=== PATIENT | female | born 1995 | race Caucasian/White ===

== ENCOUNTER 2021-05-04 10:00 | Emergency (ER) | payer BC ==
[2021-05-04 10:07] VITALS: BP 151/87; PULSE 96; RESP 18; TEMP 98.7
[2021-05-04] MEDS ORDERED: CEPHALEXIN 500 MG CAP PO STA (10:16)
[2021-05-04] MEDS ORDERED: dexAMETHasone 2 MG TAB PO STA (10:16)
--- NOTE | 2021-05-04 10:19 | ED ---
Extremity Problem HPI - General Chief complaint: Extremity Problem,Nontraumatic Stated complaint: Reaction to Vaccine Time Seen by Provider: 05/04/21 10:12 Source: patient, RN notes reviewed Mode of arrival: ambulatory Limitations: no limitations - History of Present Illness Initial comments: 25-year-old female presents emergency from [facility] possible left arm where she received Pfizer vaccine. Patient states that she had no symptoms initially but over the last 2-3 days she's had increasing redness and swelling. Patient states that she is getting worse day by day. Patient denies any fevers or chills no other complaints. - Related Data Previous Rx's Medication Instructions Recorded Cephalexin [Keflex] 500 mg PO Q6HR #28 cap 05/04/21 Allergies Allergy/AdvReac Type Severity Reaction Status Date / Time No Known Allergies Allergy Verified 05/04/21 10:07 Review of Systems ROS Statement: Those systems with pertinent positive or pertinent negative responses have been documented in the HPI. ROS Other: All systems not noted in ROS Statement are negative. Past Medical History Past Medical History: Asthma History of Any Multi-Drug Resistant Organisms: None Reported Past Surgical History: Section Additional Past Surgical History / Comment(s): breast reduction, foot surgery 2016 Past Psychological History: No Psychological Hx Reported Smoking Status: Never smoker Past Alcohol Use History: Occasional Past Drug Use History: None Reported General Exam Limitations: no limitations General appearance: alert, in no apparent distress Head exam: Present: atraumatic, normocephalic, normal inspection Neck exam: Present: normal inspection. Absent: tenderness, meningismus, lymphadenopathy Respiratory exam: Present: normal lung sounds bilaterally. Absent: respiratory distress, wheezes, rales, rhonchi, stridor Cardiovascular Exam: Present: regular rate, normal rhythm, normal heart sounds. Absent: systolic murmur, diastolic murmur, rubs, gallop, clicks Extremities exam: Present: other (Left upper arm there is erythema noted there is borderline which was marked and there is erythema outside the border, tenderness with palpation) Course Vital Signs 05/04/21 10:02 Temperature 98.7 F Pulse Rate 96 Respiratory 18 Rate Blood Pressure 151/87 O2 Sat by Pulse 100 Oximetry Medical Decision Making - Medical Decision Making Patient may have site reaction versus cellulitis as it seems to be worsening. Patient we discharged on antibiotics return parameters were discussed. Disposition Clinical Impression: Left arm cellulitis, Injection site reaction Disposition: HOME SELF-CARE Condition: Stable Instructions (If sedation given, give patient instructions): Cellulitis (ED) Additional Instructions: Please return to the Emergency Department if symptoms worsen or any other concerns. Prescriptions: Cephalexin [Keflex] 500 mg PO Q6HR #28 cap Is patient prescribed a controlled substance at d/c from ED?: No Referrals: Alden Benito DO [Primary Care Provider] - 1-2 days Time of Disposition: 10:18
== END 2021-05-04 10:42 | disposition home or self-care (01) ==
LOC: EC 10:00
DX: L03.114 Cellulitis of left upper limb (principal); T50.B95A Adverse effect of other viral vaccines, initial encounter
CPT/HCPCS: 99283; J8540

== ENCOUNTER → 2021-05-27 | Outpatient (CLI) | payer BC ==
--- NOTE | 2021-05-27 15:55 | ECHOS ---
STRESS ECHOCARDIOGRAM INDICATIONS: Palipitations BASELINE HEART RATE: 83 BASELINE BLOOD PRESSURE: 111/62 MAXIMUM HEART RATE: 181 MAXIMUM BLOOD PRESSURE: 148/55 85% MPHR: 196 100% MPHR: METS: 7.3 MAXIMUM STAGE REACHED: II TOTAL EXERCISE TIME: 6 min. RESULTS: Baseline EKG revealed normal sinus rhythm without significant ST changes. Patient walked for 6 minutes on standard Bib protocol. Achieved a maximal heart rate of 180 beats per minute, developed fatigue and shortness of breath but did not have any anginal symptoms. Patient had hypertensive response to exercise with a peak pressure of 250. Two hundred fifty systolic was recorded on the machine, but I am not sure if this is accurate. Immediately after the exercise within 5 minutes, the pressure was down to 137/70. However, this is a negative stress test with limited exercise capacity. Hypertensive response with exercise was noted. Baseline echo images revealed normal wall motion and wall thickening of all segments. At peak exercise, there was good augmentation of left and wall motion wall thickening of all segments suggesting that there is no evidence of any stress-induced ischemia on this study. FINAL IMPRESSION: 1. Limited exercise capacity with a negative stress test by EKG criteria. 2. No symptoms of angina reported. 3. There was hypertensive response to exercise. I have advised the patient to keep a BP diary and then share this with her primary care physician. 4. Normal stress echocardiogram without evidence of ischemia. MMODL / IJN: [id number] /
== END | disposition home or self-care (01) ==
LOC: EDUNIT# 05-12 09:15 → RADNMMAIN 09:02
PROVIDERS: ATTEND Family Medicine
DX: I49.9 Cardiac arrhythmia, unspecified (principal)
CPT/HCPCS: 93351